=== PATIENT | male | born 1980 | race Caucasian/White ===

== ENCOUNTER 2019-07-07 15:55 | Inpatient (IN) | payer MEDICAID ==
[~2019-07-07] VITALS: Ht 182.9 cm; Wt 77.0 kg
[2019-07-07] VITALS (11 sets, daily range): BP systolic 118–152; BP diastolic 67–98
[2019-07-07] MEDS ORDERED: aspirin 300mg supp.rect RC ONE (16:00)
[2019-07-07] MEDS ORDERED: iohexol 350 MG/1 ML 200ml bottle ONE (16:01)
[2019-07-07] MEDS ORDERED: heparin 25,000 UNIT/250ml bag 250 ML IV SCH (16:01)
[2019-07-07] MEDS ORDERED: fentaNYL/PF 50MCG/1 ML 2ML syringe ONE (16:01)
[2019-07-07] MEDS ORDERED: LIDOcaine 1% (10mg/ml)w/preservative injection 20ml MDV ONE (16:01)
[2019-07-07] MEDS ORDERED: midazolam 2 mg/2 ml injection ONE ×2 (16:01→16:38)
[2019-07-07] MEDS ORDERED: heparin 1,000unit/ml 10ml vial 10 ML ONE (16:01)
[2019-07-07] MEDS ORDERED: heparin 10,000 units/1 ML INJ IV PRN (16:05)
[2019-07-07] MEDS ORDERED: heparin 10,000 units/1 ML INJ IV ONE (16:05)
[2019-07-07] MEDS ORDERED: pantoprazole 40 MG vial IV ONE ×3 (16:05→16:30)
--- NOTE | 2019-07-07 16:15 | NUR ---
ATTEMPTED TO START 2ND IV LINE WITHOUT SUCCESS. LAB DRAW PER GLASS UNLOADING EQUIPMENT TENDER. GROINS PREPPED FOR VINYL FLOORING INSTALLER. PATIENT ALERT AND COOPERATIVE.
[2019-07-07 16:30] LABS: BASOPHILS % (AUTO) 0.4 % (0-1); EOSINOPHILS # (AUTO) 0.1 X10'3 (0-0.9); EOSINOPHILS % (AUTO) 1.2 % (0-6); HEMATOCRIT 36.6 % (42.0-52.0); HEMOGLOBIN 11.6 g/dl (14.0-17.9); LYMPHOCYTES # (AUTO) 1.2 X10'3 (1.1-4.8); LYMPHOCYTES % (AUTO) 13.3 % (21-51); MEAN CORPUSCULAR HEMOGLOBIN 21.9 PG (27.0-31.0); MEAN CORPUSCULAR HGB CONC 31.6 g/dL (33.0-36.5); MEAN CORPUSCULAR VOLUME 69.3 FL (78-98); MEAN PLATELET VOLUME 8.4 FL (7.4-10.4); MONOCYTES # (AUTO) 0.8 X10'3 (0-0.9); MONOCYTES % (AUTO) 8.8 % (2-12); NEUTROPHILS # (AUTO) 6.9 X10'3 (1.8-7.7); NEUTROPHILS % (AUTO) 76.3 % (42-75); PLATELET COUNT 291 X10'3 (140-440); RED BLOOD COUNT 5.28 X10'6 (4.70-6.10); RED CELL DISTRIBUTION WIDTH 17.1 % (11.5-14.5)
--- NOTE | 2019-07-07 16:35 | NUR ---
TO BULKING MACHINE OPERATOR PER BOO WITH IV PATENT AND INFUSINIG WELL.
[2019-07-07 16:42] LABS: PARTIAL THROMBOPLASTIN TIME 27 SECONDS (22-32)
[2019-07-07] MEDS ORDERED: ticagrelor 90mg tablet ONE (16:49)
[2019-07-07 16:53] LABS: ALANINE AMINOTRANSFERASE 24 U/L (12-78); ALBUMIN/GLOBULIN RATIO 0.8 (1.1-1.5); ALKALINE PHOSPHATASE 100 IU/L (46-116); ANION GAP 6 (8-16); ASPARTATE AMINO TRANSFERASE 18 U/L (10-37); BILIRUBIN,TOTAL 0.4 MG/DL (0.1-1.0); BLOOD UREA NITROGEN 18 MG/DL (7-18); BUN/CREATININE RATIO 11.3 (5.4-32.0); CHLORIDE 97 MMOL/L (99-107); CREATININE 1.59 MG/DL (0.60-1.10); GLUCOSE 120 MG/DL (70-104); MAGNESIUM 2.1 MG/DL (1.5-2.4); SODIUM 139 MMOL/L (135-145); TOTAL CARBON DIOXIDE 36.5 MMOL/L (24-32); TOTAL PROTEIN 6.7 G/DL (6.4-8.2); eGFR 49 ML/MIN
[2019-07-07 16:58] LABS: POTASSIUM 2.6 MMOL/L (3.5-5.1)
--- NOTE | 2019-07-07 17:10 | NUR ---
Patient admitted to room 3027B. Received in concrete mixing plant laborer report that patient received loading dose of Brilinta prior to room admission. Post op vital signs initiated. Post concrete mixing plant laborer orders faxed to pharmacy. Right groin site checked, no sign of hematoma, and pulses checked as well. Will continue to monitor post op
[2019-07-07] MEDS ORDERED: proCHLORperazine 10 MG/2 ml inj IV PRN (17:35)
[2019-07-07] MEDS ORDERED: OXAZEpam 15mg capsule PO PRN (17:35)
[2019-07-07] MEDS ORDERED: HYDROcodone/acetaminophen 5mg/325mg tablet PO PRN (17:35)
[2019-07-07] MEDS ORDERED: aspirin 81mg tab.chew PO ONE (17:35)
[2019-07-07] MEDS ORDERED: potassium Cl 20 mEq SR tablet PO ONE ×5 (17:35→22:00)
[2019-07-07] MEDS ORDERED: ondansetron/PF 4mg/2ml inj IV PRN (17:35)
[2019-07-07] MEDS ORDERED: HYDROcodone/acetaminophen 10/325mg tab PO PRN (17:35)
--- NOTE | 2019-07-07 18:00 | NUR ---
Due to patient's bleeding ulcer, spoke to labor arbitrator hearing office and expressed patient's concerns regarding the 324 mg PO post op aspirin. Per labor arbitrator hearing office, patient received suppository of aspirin and we can non admin the 324 dose and continue with the 81 mg q 24 hr @ 0830 Addendum: 07/07/19 at 1804 by Bryanna Higginbotham RN NOTE PLACED BY PENNY SINHA.
--- NOTE | 2019-07-07 18:06 | NUR ---
Non-administered protonix 1630 dose as patient was not on this floor at this time and unable to know if med was given and not scanned.
[2019-07-07 18:10] LABS: PLATELET ESTIMATE NORMAL
[2019-07-07 18:11] LABS: ANISOCYTOSIS 1+; ELLIPTOCYTES FEW; HYPOCHROMASIA 1+; MICROCYTOSIS 2+
--- NOTE | 2019-07-07 18:33 | NUR ---
Problems reprioritized. Patient report given, questions answered & plan of care reviewed with Dwayne RN. At shift change, patient's right groin shows no sign of hematoma, pedal pulses present, and vss stable
[2019-07-07] MEDS: metoprolol tartrate 25mg tablet PO SCH (20:54)
[2019-07-07] MEDS: atorvastatin 20mg tablet PO SCH (20:55)
[2019-07-07] MEDS: pantoprazole 40mg Tablet.DR PO SCH (22:32)
--- NOTE | 2019-07-08 00:55 | NUR ---
Patient in room [facility] 3027. I have received report from Bryanna FRANCIS and had the opportunity to ask questions and assume patient care. Addendum: 07/08/19 at 0056 by Dwayne Denis RN Patient in room [place] [address]. I have received report from Bryanna FRANCIS and had the opportunity to ask questions and assume patient care. at 1800 07/07/2019
[2019-07-08 02:00] VITALS: BP 110/74
[2019-07-08 05:01] LABS: BASOPHILS % (AUTO) 0.4 % (0-1); EOSINOPHILS # (AUTO) 0.1 X10'3 (0-0.9); EOSINOPHILS % (AUTO) 1.3 % (0-6); HEMATOCRIT 38.8 % (42.0-52.0); HEMOGLOBIN 12.2 g/dl (14.0-17.9); LYMPHOCYTES # (AUTO) 0.9 X10'3 (1.1-4.8); LYMPHOCYTES % (AUTO) 11.4 % (21-51); MEAN CORPUSCULAR HEMOGLOBIN 22.1 PG (27.0-31.0); MEAN CORPUSCULAR HGB CONC 31.4 g/dL (33.0-36.5); MEAN CORPUSCULAR VOLUME 70.2 FL (78-98); MEAN PLATELET VOLUME 8.5 FL (7.4-10.4); MONOCYTES # (AUTO) 0.6 X10'3 (0-0.9); MONOCYTES % (AUTO) 7.6 % (2-12); NEUTROPHILS # (AUTO) 6.6 X10'3 (1.8-7.7); NEUTROPHILS % (AUTO) 79.3 % (42-75); PLATELET COUNT 269 X10'3 (140-440); RED BLOOD COUNT 5.53 X10'6 (4.70-6.10); RED CELL DISTRIBUTION WIDTH 17.4 % (11.5-14.5); WHITE BLOOD COUNT 8.3 X10'3 (4.5-11.0)
--- NOTE | 2019-07-08 05:32 | NUR ---
Spoke with Dr. Santos informed him of patients 6 beat run of Vta. Provider is aware. No orders received will continue to monitor.
[2019-07-08 05:52] LABS: ALBUMIN 3.1 G/DL (3.4-5.0); ANION GAP 8 (8-16); BLOOD UREA NITROGEN 18 MG/DL (7-18); BUN/CREATININE RATIO 12.6 (5.4-32.0); CALCIUM 9.2 MG/DL (8.5-10.1); CHLORIDE 101 MMOL/L (99-107); CREATININE 1.43 MG/DL (0.60-1.10); GLUCOSE 100 MG/DL (70-104); POTASSIUM 3.3 MMOL/L (3.5-5.1); SODIUM 142 MMOL/L (135-145); TOTAL CARBON DIOXIDE 33.4 MMOL/L (24-32); eGFR 56 ML/MIN
--- NOTE | 2019-07-08 06:14 | NUR ---
Problems reprioritized. Patient report given, questions answered & plan of care reviewed with Laya FRANCIS.
--- NOTE | 2019-07-08 06:37 | NUR ---
Patient in room PCU 3027. I have received report from Dwayne FRANCIS and had the opportunity to ask questions and assume patient care.
--- NOTE | 2019-07-08 06:38 | NUR ---
Patient in room PCU 3027. I have received report from PENNY Rice and had the opportunity to ask questions and assume patient care. Patient awake in bed and resting. Offers no complaints. No chest pain. Assessed groin site and no bruising/hematoma noted.
[2019-07-08 07:00] VITALS: BP 112/63
[2019-07-08] MEDS: metoprolol tartrate 25mg tablet PO SCH ×2 (08:04→19:38)
[2019-07-08] MEDS: pantoprazole 40mg Tablet.DR PO SCH ×2 (08:05→19:39)
[2019-07-08] MEDS: ticagrelor 90mg tablet PO SCH ×2 (08:05→19:37)
[2019-07-08] MEDS: aspirin 81mg tab.chew PO SCH (09:36)
[2019-07-08 10:11] LABS: CHOL/HDL RATIO 4.4 (0.00-4.99); CHOLESTEROL 141 MG/DL (0-200); HDL CHOLESTEROL 32 MG/DL (35-60); LDL CHOLESTEROL 87 MG/DL (50-100); TRIGLYCERIDES 114 MG/DL (20-135)
[2019-07-08] MEDS ORDERED: potassium Cl 20 mEq SR tablet PO PRN (10:35)
[2019-07-08] MEDS ORDERED: magnesium 4gm in 100ml NS 100 ML IV PRN (10:35)
[2019-07-08] MEDS ORDERED: potassium CL 10mEq/100ml bag 100 ML IV PRN (10:35)
[2019-07-08] MEDS ORDERED: magnesium Cl slow-release 64mg tablet PO PRN (10:35)
--- NOTE | 2019-07-08 10:39 | NUR ---
New order from Uzma Griffiths NP potassium replacement protocol.
[2019-07-08 11:00] VITALS: BP 89/61
[2019-07-08] MEDS: potassium Cl 20 mEq SR tablet PO PRN ×3 (11:04→21:58)
[2019-07-08 18:00] VITALS: BP 102/62
--- NOTE | 2019-07-08 18:23 | NUR ---
Patient in room PCU 3027. I have received report from PENNY Asif and had the opportunity to ask questions and assume patient care.
--- NOTE | 2019-07-08 18:25 | NUR ---
Problems reprioritized. Patient report given, questions answered & plan of care reviewed with Jesi FRANCIS Pt stable at [facility].
--- NOTE | 2019-07-08 18:25 | NUR ---
Problems reprioritized. Patient report given, questions answered & plan of care reviewed with Jesi FRANCIS. Patient stable at transfer of care.
--- NOTE | 2019-07-08 18:26 | NUR ---
[place]ee documentation: I have reviewed and agree with all interventions, assessments performed and documented by PENNY Batres. [place] Medication Administration: For this medication-pass time frame, all medication were reviewed, dispensed, administered and documented per hospital policy by PENNY Batres.
[2019-07-08] MEDS: atorvastatin 20mg tablet PO SCH (19:39)
[2019-07-08 21:59] VITALS: BP 93/69
[2019-07-08 22:07] VITALS: BP 114/67
[2019-07-09 02:48] VITALS: BP 98/59
[2019-07-09 05:29] LABS: BASOPHILS % (AUTO) 0.3 % (0-1); EOSINOPHILS # (AUTO) 0.2 X10'3 (0-0.9); EOSINOPHILS % (AUTO) 1.6 % (0-6); HEMATOCRIT 37.6 % (42.0-52.0); HEMOGLOBIN 11.8 g/dl (14.0-17.9); LYMPHOCYTES # (AUTO) 1.1 X10'3 (1.1-4.8); LYMPHOCYTES % (AUTO) 10.8 % (21-51); MEAN CORPUSCULAR HEMOGLOBIN 21.9 PG (27.0-31.0); MEAN CORPUSCULAR HGB CONC 31.4 g/dL (33.0-36.5); MEAN CORPUSCULAR VOLUME 69.9 FL (78-98); MEAN PLATELET VOLUME 8.8 FL (7.4-10.4); MONOCYTES # (AUTO) 0.9 X10'3 (0-0.9); MONOCYTES % (AUTO) 8.9 % (2-12); NEUTROPHILS # (AUTO) 7.6 X10'3 (1.8-7.7); NEUTROPHILS % (AUTO) 78.4 % (42-75); PLATELET COUNT 267 X10'3 (140-440); RED BLOOD COUNT 5.38 X10'6 (4.70-6.10); WHITE BLOOD COUNT 9.7 X10'3 (4.5-11.0)
[2019-07-09 05:37] LABS: ALBUMIN 2.9 G/DL (3.4-5.0); ANION GAP 8 (8-16); BLOOD UREA NITROGEN 17 MG/DL (7-18); BUN/CREATININE RATIO 14.4 (5.4-32.0); CALCIUM 10.4 MG/DL (8.5-10.1); CHLORIDE 99 MMOL/L (99-107); CREATININE 1.18 MG/DL (0.60-1.10); GLUCOSE 98 MG/DL (70-104); POTASSIUM 3.8 MMOL/L (3.5-5.1); SODIUM 138 MMOL/L (135-145); TOTAL CARBON DIOXIDE 31.3 MMOL/L (24-32); eGFR 69 ML/MIN
[2019-07-09 06:00] VITALS: BP 114/89
[2019-07-09] MEDS ORDERED: potassium Cl 20 mEq SR tablet PO STA (06:12)
[2019-07-09] MEDS ORDERED: ATOR20TA66 PO (06:25)
[2019-07-09] MEDS ORDERED: PANT40TA4 PO (06:25)
[2019-07-09] MEDS ORDERED: ASPI-1265 PO (06:25)
[2019-07-09] MEDS ORDERED: TICA90TA PO (06:25)
[2019-07-09] MEDS ORDERED: METO25TA6 PO (06:25)
[2019-07-09] MEDS ORDERED: NITR0.4T51 SL (06:25)
--- NOTE | 2019-07-09 06:33 | NUR ---
Problems reprioritized. Patient report given, questions answered & plan of care reviewed with PENNY Bangura.
[2019-07-09] MEDS: aspirin 81mg tab.chew PO SCH (08:33)
[2019-07-09] MEDS: pantoprazole 40mg Tablet.DR PO SCH (08:33)
[2019-07-09] MEDS: ticagrelor 90mg tablet PO SCH (08:33)
[2019-07-09 08:36] VITALS: BP_SYST 100
[2019-07-09] MEDS: metoprolol tartrate 25mg tablet PO SCH (08:36)
--- NOTE | 2019-07-09 09:44 | NUR ---
New prescriptions for discharge called into [facility] in [place]
--- NOTE | 2019-07-09 10:15 | NUR ---
reviewed all discharge instructions,confirmed prescriptions at [facility] in [place],reviewed s/p cath mobility precautions need for for f/u appt with in 2 weeks,S.L dcd' from [facility],site clear,pt dc'd via w/c with all belongings
== END 2019-07-09 10:05 | disposition home or self-care (01) | DRG 174 ==
LOC: ER 15:55 → PCU 3S 17:55
PROVIDERS: ADMIT Internal Medicine Interventional Cardiology; ATTEND Internal Medicine Interventional Cardiology
PROC: 4A023N7 Measurement of Cardiac Sampling and Pressure, Left Heart, Percutaneous Approach (ICD-10-PCS; principal; 2019-07-07)
PROC: 02703DZ Dilation of Coronary Artery, One Artery with Intraluminal Device, Percutaneous Approach (ICD-10-PCS; 2019-07-07)
PROC: B2111ZZ Fluoroscopy of Multiple Coronary Arteries using Low Osmolar Contrast (ICD-10-PCS; 2019-07-07)
PROC: B2151ZZ Fluoroscopy of Left Heart using Low Osmolar Contrast (ICD-10-PCS; 2019-07-07)
DX: I21.3 ST elevation (STEMI) myocardial infarction of unspecified site (principal); F12.90 Cannabis use, unspecified, uncomplicated; F17.210 Nicotine dependence, cigarettes, uncomplicated; Z79.899 Other long term (current) drug therapy; Z82.49 Family history of ischemic heart disease and other diseases of the circulatory system; Z87.11 Personal history of peptic ulcer disease
CPT/HCPCS: 36415; 71045; 80048; 80053; 80061; 83735; 83880; 84484; 85025; 85610; 85730; 93005; 93306; 93458; 96374; 96375; 99152; 99153; 99291; A6258; C1725; C1751; C1760; C1769; C1876; C1894; C9113; C9606; G0378; J1644; J2001; J2250; J2405; J3010; Q9967

== ENCOUNTER 2019-07-29 09:16 | Inpatient (IN) | payer MEDICAID ==
[~2019-07-29] VITALS: Ht 182.9 cm; Wt 66.9 kg
[~2019-07-29 09:16] MED LIST: ASPI-1265 PO; ATOR20TA66 PO; METO25TA6 PO; NITR0.4T51 SL; PANT40TA4 PO; TICA90TA PO
[2019-07-29] MEDS ORDERED: normal saline 1000ML IV soln IV ONE (09:45)
[2019-07-29 09:58] LABS: BASOPHILS % (AUTO) 0.3 % (0-1); EOSINOPHILS # (AUTO) 0.1 X10'3 (0-0.9); EOSINOPHILS % (AUTO) 0.3 % (0-6); HEMATOCRIT 33.7 % (42.0-52.0); HEMOGLOBIN 10.7 g/dl (14.0-17.9); LYMPHOCYTES # (AUTO) 0.8 X10'3 (1.1-4.8); LYMPHOCYTES % (AUTO) 4.2 % (21-51); MEAN CORPUSCULAR HEMOGLOBIN 22.3 PG (27.0-31.0); MEAN CORPUSCULAR HGB CONC 31.9 g/dL (33.0-36.5); MEAN CORPUSCULAR VOLUME 69.8 FL (78-98); MEAN PLATELET VOLUME 8.8 FL (7.4-10.4); MONOCYTES # (AUTO) 0.9 X10'3 (0-0.9); MONOCYTES % (AUTO) 4.8 % (2-12); NEUTROPHILS # (AUTO) 17.2 X10'3 (1.8-7.7); NEUTROPHILS % (AUTO) 90.4 % (42-75); PLATELET COUNT 276 X10'3 (140-440); RED BLOOD COUNT 4.82 X10'6 (4.70-6.10); RED CELL DISTRIBUTION WIDTH 17.9 % (11.5-14.5)
[2019-07-29 10:11] LABS: ALANINE AMINOTRANSFERASE 34 U/L (12-78); ALBUMIN 3.3 G/DL (3.4-5.0); ALBUMIN/GLOBULIN RATIO 0.7 (1.1-1.5); ALKALINE PHOSPHATASE 132 IU/L (46-116); ASPARTATE AMINO TRANSFERASE 60 U/L (10-37); BILIRUBIN,TOTAL 1.6 MG/DL (0.1-1.0); BLOOD UREA NITROGEN 47 MG/DL (7-18); BUN/CREATININE RATIO 14.4 (5.4-32.0); CALCIUM 9.4 MG/DL (8.5-10.1); CHLORIDE 79 MMOL/L (99-107); CREATININE 3.26 MG/DL (0.60-1.10); GLUCOSE 114 MG/DL (70-104); SODIUM 131 MMOL/L (135-145); TOTAL PROTEIN 7.9 G/DL (6.4-8.2); eGFR 22 ML/MIN
[2019-07-29 10:14] LABS: POTASSIUM 2.3 MMOL/L (3.5-5.1)
[2019-07-29 10:26] LABS: ANISOCYTOSIS 1+; MICROCYTOSIS 2+; PLATELET ESTIMATE NORMAL; POLYCHROMASIA 1+; TOTAL CELLS COUNTED 100
[2019-07-29 10:29] LABS: ANION GAP 4 (8-16)
[2019-07-29 10:31] LABS: TOTAL CARBON DIOXIDE 47.7 MMOL/L (24-32)
[2019-07-29] MEDS ORDERED: potassium Cl 10 mEq/100mL bag IV ONE (10:35)
[2019-07-29] MEDS ORDERED: potassium Cl 20 mEq SR tablet PO PRN (12:05)
[2019-07-29] MEDS ORDERED: magnesium Cl slow-release 64mg tablet PO PRN (12:05)
[2019-07-29] MEDS ORDERED: magnesium 4gm in 100ml NS 100 ML IV PRN (12:05)
[2019-07-29] MEDS ORDERED: potassium CL 10mEq/100ml bag 100 ML IV PRN ×2 (12:05)
[2019-07-29] MEDS ORDERED: magnesium 2GM in 50ml NS 50 ML IV PRN (12:05)
[2019-07-29] MEDS ORDERED: ondansetron/PF 4mg/2ml inj IV PRN (12:05)
[2019-07-29] MEDS ORDERED: TICA90TA PO (12:51)
[2019-07-29] MEDS ORDERED: ATOR80TA PO (12:51)
[2019-07-29] MEDS ORDERED: ONDA4TAB6 PO (12:51)
[2019-07-29] MEDS ORDERED: FERR-39 PO (12:51)
[2019-07-29] MEDS ORDERED: PANT40TA4 PO (12:51)
[2019-07-29] MEDS ORDERED: ASPI-1265 PO (12:51)
[2019-07-29] MEDS ORDERED: METO25TA6 PO (12:51)
[2019-07-29] MEDS ORDERED: NITR0.4T48 SL (12:51)
[2019-07-29] MEDS ORDERED: ALLO100T25 PO (12:51)
[2019-07-29] MEDS ORDERED: SUCR1TAB PO (12:51)
--- NOTE | 2019-07-29 12:59 | NUR ---
Patient in room ED 2. I have received report from Caitlyn RN and had the opportunity to ask questions and assume patient care.
[2019-07-29 13:14] LABS: OCCULT BLOOD STOOL POSITIVE (Neg)
--- NOTE | 2019-07-29 14:00 | NUR ---
Potassium 2.3, began replacement protocol
[2019-07-29 14:17] VITALS: BP 115/73
[2019-07-29] MEDS: normal saline 1000ml 1,000 ML IV SCH ×2 (14:19→22:37)
[2019-07-29] MEDS: pantoprazole 40MG/NS 100ML BAG 100 ML IV SCH ×3 (15:58→20:43)
[2019-07-29] MEDS ORDERED: nitroGLYCERIN 0.4mg SUBLingual tab SL PRN (16:40)
--- NOTE | 2019-07-29 16:53 | NUR ---
Page to Jaya PAGER ID: [phone] MESSAGE: Fannie GINI [phone]. Patient Bryanna [id number]. Can I get a Nicotine patch for him? He recently quit but struggling
[2019-07-29 17:00] VITALS: BP 96/62
[2019-07-29 18:00] VITALS: BP 99/59
--- NOTE | 2019-07-29 18:00 | NUR ---
Patient in room PCU 3023. I have received report from Fannie FRANCIS and had the opportunity to ask questions and assume patient care.
[2019-07-29 18:36] LABS: MEAN CORPUSCULAR HEMOGLOBIN 22.9 PG (27.0-31.0); MEAN CORPUSCULAR HGB CONC 31.9 g/dL (33.0-36.5); MEAN CORPUSCULAR VOLUME 71.6 FL (78-98); MEAN PLATELET VOLUME 8.7 FL (7.4-10.4); PLATELET COUNT 176 X10'3 (140-440); RED BLOOD COUNT 3.92 X10'6 (4.70-6.10); RED CELL DISTRIBUTION WIDTH 18.8 % (11.5-14.5); WHITE BLOOD COUNT 14.8 X10'3 (4.5-11.0)
--- NOTE | 2019-07-29 18:38 | NUR ---
Problems reprioritized. Patient report given, questions answered & plan of care reviewed with Guillermina FRANCIS. Patient stable at transfer of care.
[2019-07-29] MEDS: sucralfate 1 gm tablet PO SCH (19:20)
[2019-07-29] MEDS: ticagrelor 90mg tablet PO SCH (19:20)
[2019-07-29] MEDS: potassium Cl 20 mEq SR tablet PO PRN (19:21)
[2019-07-29] MEDS: K and/or MAG REPLACEMENT MC SCH (19:23)
[2019-07-29] MEDS: ferrous sulfate 325mg tablet PO SCH (20:26)
[2019-07-29 20:46] LABS: CLARITY,URINE CLEAR (Clear); COLOR,URINE YELLOW (Yellow); GLUCOSE, URINE NEGATIVE (Neg); KETONES,URINE NEGATIVE (Neg); LEUKOCYTE ESTERASE ,URINE NEGATIVE (Neg); NITRITES, URINE NEGATIVE (Neg); OCCULT BLOOD,URINE NEGATIVE (Neg); PH,URINE 7.5 (4.8-8.0); PROTEIN,URINE TRACE mg/dl (Neg)
[2019-07-29 20:57] LABS: UA COLLECTION TYPE CLN CATCH MIDSTREAM
[2019-07-29 21:00] LABS: BACTERIA,URINE NONE SEEN /HPF (Neg); RBC,URINE NONE SEEN /HPF (0-2); SQUAMOUS EPITHELIAL CELL,UR FEW /LPF (FEW); WBC,URINE 0-4 /HPF (0-4)
[2019-07-29 21:01] LABS: URINE AMPHETAMINE SCREEN NEGATIVE (Neg); URINE BARBITUATE SCREEN NEGATIVE (Neg); URINE BENZODIAZEPINES SCREEN NEGATIVE (Neg); URINE CANNABINOID SCREEN POSITIVE (Neg); URINE COCAINE SCREEN NEGATIVE (Neg); URINE METHADONE SCREEN NEGATIVE (Neg); URINE OPIATE SCREEN NEGATIVE (Neg); URINE PHENCYCLIDINE SCREEN NEGATIVE (Neg)
[2019-07-29 21:16] LABS: UA EOSINOPHILS NO EOS /HPF
[2019-07-29 22:00] VITALS: BP 102/60
[2019-07-29] MEDS ORDERED: Melatonin 3mg tablet PO SCH (22:40)
[2019-07-30] MEDS: pantoprazole 40MG/NS 100ML BAG 100 ML IV SCH ×2 (00:25→06:26)
[2019-07-30 02:00] VITALS: BP 97/56
[2019-07-30] MEDS: potassium Cl 20 mEq SR tablet PO PRN (02:52)
--- NOTE | 2019-07-30 05:00 | NUR ---
CRITICAL K 2.4 MD HERNANDEZ NOTIFIED, NO NEW ORDERS.
[2019-07-30 05:24] LABS: BASOPHILS % (AUTO) 0.2 % (0-1); EOSINOPHILS # (AUTO) 0.1 X10'3 (0-0.9); EOSINOPHILS % (AUTO) 1.2 % (0-6); HEMOGLOBIN 8.9 g/dl (14.0-17.9); LYMPHOCYTES # (AUTO) 0.5 X10'3 (1.1-4.8); LYMPHOCYTES % (AUTO) 4.6 % (21-51); MEAN CORPUSCULAR HEMOGLOBIN 22.6 PG (27.0-31.0); MEAN CORPUSCULAR HGB CONC 31.7 g/dL (33.0-36.5); MEAN CORPUSCULAR VOLUME 71.3 FL (78-98); MEAN PLATELET VOLUME 8.5 FL (7.4-10.4); MONOCYTES # (AUTO) 0.6 X10'3 (0-0.9); MONOCYTES % (AUTO) 5.2 % (2-12); NEUTROPHILS # (AUTO) 10.6 X10'3 (1.8-7.7); NEUTROPHILS % (AUTO) 88.8 % (42-75); PLATELET COUNT 175 X10'3 (140-440); RED BLOOD COUNT 3.93 X10'6 (4.70-6.10); RED CELL DISTRIBUTION WIDTH 18.5 % (11.5-14.5); WHITE BLOOD COUNT 11.9 X10'3 (4.5-11.0)
[2019-07-30 05:40] LABS: ALBUMIN 2.4 G/DL (3.4-5.0); ANION GAP 4 (8-16); BLOOD UREA NITROGEN 37 MG/DL (7-18); BUN/CREATININE RATIO 18.3 (5.4-32.0); CALCIUM 8.2 MG/DL (8.5-10.1); CHLORIDE 91 MMOL/L (99-107); CREATININE 2.02 MG/DL (0.60-1.10); GLUCOSE 73 MG/DL (70-104); MAGNESIUM 2.5 MG/DL (1.5-2.4); SODIUM 134 MMOL/L (135-145); TOTAL CARBON DIOXIDE 39.3 MMOL/L (24-32); eGFR 37 ML/MIN
[2019-07-30 05:44] LABS: POTASSIUM 2.4 MMOL/L (3.5-5.1)
[2019-07-30 06:00] VITALS: BP 104/62
--- NOTE | 2019-07-30 06:34 | NUR ---
Problems reprioritized. Patient report given, questions answered & plan of care reviewed with Fannie FRANCIS.
--- NOTE | 2019-07-30 06:50 | NUR ---
Patient in room PCU 3023. I have received report from Guillermina FRANCIS and had the opportunity to ask questions and assume patient care.
[2019-07-30] MEDS: K and/or MAG REPLACEMENT MC SCH (07:54)
[2019-07-30] MEDS: sucralfate 1 gm tablet PO SCH (07:57)
[2019-07-30] MEDS: ferrous sulfate 325mg tablet PO SCH (07:58)
[2019-07-30] MEDS: ticagrelor 90mg tablet PO SCH (07:59)
[2019-07-30] MEDS ORDERED: atorvastatin 20mg tablet PO SCH (08:00)
[2019-07-30] MEDS ORDERED: allopurinol 100mg tablet PO SCH (08:00)
--- NOTE | 2019-07-30 09:48 | NUR ---
Page to Jaya PAGER ID: [phone] MESSAGE: Fannie RUBALCAVA. Patient Bryanna [id number]. Patient is leaving AMA. Very agitated.
--- NOTE | 2019-07-30 09:54 | NUR ---
Patient left AMA, signed paper in chart. Walked out with shorts on no shirt, with girlfriend.
== END 2019-07-30 10:00 | disposition left against medical advice (07) | DRG 253 ==
LOC: ER 09:16 → ED HOLD 12:05 → PCU 3S 13:16
PROVIDERS: ADMIT Internal Medicine; ATTEND Internal Medicine
DX: K92.2 Gastrointestinal hemorrhage, unspecified (principal); I21.A1 Myocardial infarction type 2; N17.9 Acute kidney failure, unspecified; D62 Acute posthemorrhagic anemia; E87.1 Hypo-osmolality and hyponatremia; E78.5 Hyperlipidemia, unspecified; R55 Syncope and collapse; Z53.29 Procedure and treatment not carried out because of patient's decision for other reasons; W18.39XA Other fall on same level, initial encounter; E86.1 Hypovolemia; F17.200 Nicotine dependence, unspecified, uncomplicated; E87.6 Hypokalemia; I25.10 Atherosclerotic heart disease of native coronary artery without angina pectoris; I25.2 Old myocardial infarction; Z87.11 Personal history of peptic ulcer disease; Z95.5 Presence of coronary angioplasty implant and graft; Y93.89 Activity, other specified; Y92.89 Other specified places as the place of occurrence of the external cause; Y99.8 Other external cause status; Z79.899 Other long term (current) drug therapy
CPT/HCPCS: 36415; 70450; 71045; 76700; 80048; 80053; 80305; 81001; 82272; 82570; 83735; 83935; 84300; 84484; 85025; 85027; 85610; 86885; 86900; 86901; 87207; 93005; 99291; C9113; G0378; J2405; J3480; J7030

== ENCOUNTER 2019-08-05 08:38 | Inpatient (IN) | payer MEDICAID ==
[~2019-08-05] VITALS: Ht 182.9 cm; Wt 65.5 kg
[2019-08-05] VITALS (10 sets, daily range): BP systolic 91–124; BP diastolic 42–83
[~2019-08-05 08:38] MED LIST changes: +ALLO100T25 PO; -ATOR20TA66 PO; +ATOR80TA PO; +FERR-39 PO; +NITR0.4T48 SL; -NITR0.4T51 SL; +ONDA4TAB6 PO; +SUCR1TAB PO
[2019-08-05 09:16] LABS: EOSINOPHILS # (AUTO) 0.1 X10'3 (0-0.9); HEMATOCRIT 26.7 % (42.0-52.0); HEMOGLOBIN 8.4 g/dl (14.0-17.9); MEAN CORPUSCULAR VOLUME 73.2 FL (78-98); MONOCYTES # (AUTO) 0.7 X10'3 (0-0.9); NEUTROPHILS % (AUTO) 84.8 % (42-75)
[2019-08-05 09:17] LABS: BASOPHILS # (AUTO) 0.1 X10'3 (0-0.2); BASOPHILS % (AUTO) 0.5 % (0-1); LYMPHOCYTES % (AUTO) 7.9 % (21-51); MEAN CORPUSCULAR HGB CONC 31.4 g/dL (33.0-36.5); MEAN PLATELET VOLUME 8.8 FL (7.4-10.4); MONOCYTES % (AUTO) 5.8 % (2-12); NEUTROPHILS # (AUTO) 10.7 X10'3 (1.8-7.7); PLATELET COUNT 53 X10'3 (140-440); RED BLOOD COUNT 3.66 X10'6 (4.70-6.10); WHITE BLOOD COUNT 12.6 X10'3 (4.5-11.0)
[2019-08-05 09:30] LABS: ALANINE AMINOTRANSFERASE 37 U/L (12-78); ALBUMIN 2.6 G/DL (3.4-5.0); ALBUMIN/GLOBULIN RATIO 0.7 (1.1-1.5); ALKALINE PHOSPHATASE 339 IU/L (46-116); ANION GAP 10 (8-16); ASPARTATE AMINO TRANSFERASE 146 U/L (10-37); BILIRUBIN,TOTAL 2.1 MG/DL (0.1-1.0); BLOOD UREA NITROGEN 48 MG/DL (7-18); BUN/CREATININE RATIO 19.9 (5.4-32.0); CALCIUM 8.7 MG/DL (8.5-10.1); CHLORIDE 91 MMOL/L (99-107); CREATININE 2.41 MG/DL (0.60-1.10); GLUCOSE 109 MG/DL (70-104); LIPASE 273 U/L (73-393); SODIUM 137 MMOL/L (135-145); TOTAL CARBON DIOXIDE 35.9 MMOL/L (24-32); TOTAL PROTEIN 6.1 G/DL (6.4-8.2); eGFR 30 ML/MIN
[2019-08-05 09:32] LABS: POTASSIUM 2.5 MMOL/L (3.5-5.1)
[2019-08-05] MEDS ORDERED: potassium Cl 20 mEq SR tablet PO ONE (09:35)
[2019-08-05] MEDS ORDERED: potassium Cl 10 mEq/100mL bag IV ONE (09:35)
[2019-08-05 09:38] LABS: CLARITY,URINE SLIGHTLY CLOUDY (Clear); COLOR,URINE YELLOW (Yellow); GLUCOSE, URINE NEGATIVE (Neg); KETONES,URINE NEGATIVE (Neg); LEUKOCYTE ESTERASE ,URINE NEGATIVE (Neg); NITRITES, URINE NEGATIVE (Neg); OCCULT BLOOD,URINE NEGATIVE (Neg); PH,URINE 5.5 (4.8-8.0); PROTEIN,URINE TRACE mg/dl (Neg)
[2019-08-05 09:40] LABS: UA COLLECTION TYPE VOIDED
[2019-08-05 09:47] LABS: SQUAMOUS EPITHELIAL CELL,UR FEW /LPF (FEW)
[2019-08-05 09:48] LABS: BACTERIA,URINE 1+ /HPF (Neg); COARSE GRANULAR CAST 0-3 /LPF (NEGATIVE); RBC,URINE 0-2 /HPF (0-2); SPERM FEW /HPF (NEGATIVE); WBC,URINE 0-4 /HPF (0-4)
[2019-08-05 09:49] LABS: MUCUS STRANDS FEW /LPF (Neg)
[2019-08-05] MEDS ORDERED: ondansetron/PF 4mg/2ml inj IV ONE (09:55)
[2019-08-05 10:26] LABS: NUCLEATED RED BLOOD CELLS 3 /100WBC (0-0); TOTAL CELLS COUNTED 100
[2019-08-05 10:27] LABS: ANISOCYTOSIS 3+; MICROCYTOSIS 1+; PLATELET ESTIMATE DECREASED
[2019-08-05 10:28] LABS: LARGE PLATELETS MODERATE; POLYCHROMASIA FEW; SCHISTOCYTES FEW
[2019-08-05 10:29] LABS: GIANT PLATELET FEW; HYPOCHROMASIA 1+
[2019-08-05 10:32] LABS: TOXIC GRANULATION 1+
[2019-08-05] MEDS ORDERED: pantoprazole IV 80 MG in normal saline 100ml IV soln 100 ML IV ONE ×4 (11:15)
[2019-08-05] MEDS ORDERED: normal saline 1000ML IV soln IV ONE (11:15)
[2019-08-05] MEDS ORDERED: pantoprazole 40 MG vial IV ONE (11:35)
[2019-08-05] MEDS ORDERED: BUPR-74 PO (11:51)
[2019-08-05] MEDS ORDERED: ondansetron 4mg rapidly disintigrating tab PO PRN (12:00)
[2019-08-05] MEDS: pantoprazole 40MG/NS 100ML BAG 100 ML IV SCH ×3 (12:03→22:55)
[2019-08-05] MEDS ORDERED: magnesium Cl slow-release 64mg tablet PO PRN (12:05)
[2019-08-05] MEDS ORDERED: diphenhydrAMINE 50 mg/ml inj IV PRN (12:05)
[2019-08-05] MEDS ORDERED: bisacodyl 10mg suppository rectal RC PRN (12:05)
[2019-08-05] MEDS ORDERED: magnesium 4gm in 100ml NS 100 ML IV PRN (12:05)
[2019-08-05] MEDS ORDERED: HYDROcodone/acetaminophen 10/325mg tab PO PRN (12:05)
[2019-08-05] MEDS ORDERED: mag hydrox/Alum hydrox/simeth 30ml oral suspension PO PRN (12:05)
[2019-08-05] MEDS ORDERED: HYDROcodone/acetaminophen 5mg/325mg tablet PO PRN (12:05)
[2019-08-05] MEDS ORDERED: diphenhydrAMINE 25mg capsule PO PRN (12:05)
[2019-08-05] MEDS ORDERED: potassium Cl 20 mEq SR tablet PO PRN (12:05)
[2019-08-05] MEDS ORDERED: metoclopramide 5 mg/ml inj IV PRN (12:05)
[2019-08-05] MEDS ORDERED: magnesium 2GM in 50ml NS 50 ML IV PRN (12:05)
[2019-08-05] MEDS ORDERED: potassium CL 10mEq/100ml bag 100 ML IV PRN ×2 (12:05)
[2019-08-05] MEDS ORDERED: acetaminophen 650mg rectal suppository RC PRN (12:05)
[2019-08-05] MEDS ORDERED: acetaminophen 325mg tablet PO PRN ×2 (12:05)
[2019-08-05] MEDS ORDERED: morphine 2 MG/ML inj. syringe IV PRN ×2 (12:05)
[2019-08-05] MEDS ORDERED: ondansetron/PF 4mg/2ml inj IV PRN (12:05)
[2019-08-05] MEDS ORDERED: magnesium hydroxide 30ml (MOM) UD suspension PO PRN (12:05)
[2019-08-05] MEDS ORDERED: octreotide inj. 1,250 MCG in normal saline 250ml IV soln 250 ML IV SCH (12:15)
[2019-08-05] MEDS: buPROPion SR 150mg tablet PO SCH (12:42)
[2019-08-05] MEDS: ferrous sulfate 325mg tablet PO SCH ×2 (13:00→20:45)
[2019-08-05 13:51] LABS: URINE AMPHETAMINE SCREEN POSITIVE (Neg); URINE BARBITUATE SCREEN NEGATIVE (Neg); URINE BENZODIAZEPINES SCREEN NEGATIVE (Neg); URINE CANNABINOID SCREEN POSITIVE (Neg); URINE COCAINE SCREEN NEGATIVE (Neg); URINE METHADONE SCREEN NEGATIVE (Neg); URINE OPIATE SCREEN NEGATIVE (Neg); URINE PHENCYCLIDINE SCREEN NEGATIVE (Neg)
--- NOTE | 2019-08-05 13:56 | NUR ---
RECEIVED TELEPHONE REPORT FROM PENNY CARIAS
[2019-08-05] MEDS: normal saline 1000ml 1,000 ML IV SCH ×2 (14:35→22:02)
[2019-08-05 17:07] LABS: BASOPHILS # (AUTO) 0.1 X10'3 (0-0.2); EOSINOPHILS # (AUTO) 0.1 X10'3 (0-0.9); MEAN PLATELET VOLUME 8.3 FL (7.4-10.4)
[2019-08-05 17:08] LABS: BASOPHILS % (AUTO) 0.8 % (0-1); HEMOGLOBIN 7.3 g/dl (14.0-17.9); LYMPHOCYTES # (AUTO) 1.1 X10'3 (1.1-4.8); LYMPHOCYTES % (AUTO) 9.2 % (21-51); MEAN CORPUSCULAR HEMOGLOBIN 23.1 PG (27.0-31.0); MEAN CORPUSCULAR HGB CONC 31.6 g/dL (33.0-36.5); MEAN CORPUSCULAR VOLUME 73.3 FL (78-98); MONOCYTES # (AUTO) 0.8 X10'3 (0-0.9); MONOCYTES % (AUTO) 6.8 % (2-12); NEUTROPHILS # (AUTO) 9.6 X10'3 (1.8-7.7); NEUTROPHILS % (AUTO) 82.2 % (42-75); RED BLOOD COUNT 3.14 X10'6 (4.70-6.10); RED CELL DISTRIBUTION WIDTH 20.7 % (11.5-14.5); WHITE BLOOD COUNT 11.6 X10'3 (4.5-11.0)
[2019-08-05 17:28] LABS: PLATELET COUNT 37 X10'3 (140-440)
--- NOTE | 2019-08-05 17:32 | NUR ---
PAGER ID: [phone] MESSAGE: DR. SZMYANSKI, [id number]/ERNESTINE, CRITICAL PLT 37, H+H 7.3/23.0, 1655 DRAW. DORETHA [phone]. TY.
[2019-08-05] MEDS ORDERED: diphenhydrAMINE 25mg capsule PO ONE (18:00)
[2019-08-05] MEDS ORDERED: acetaminophen 325mg tablet PO ONE (18:00)
--- NOTE | 2019-08-05 18:35 | NUR ---
Problems reprioritized. Patient report given, questions answered & plan of care reviewed with robbie kearns.
--- NOTE | 2019-08-05 19:07 | NUR ---
Patient in room U 3012. I have received report from PENNY Howard and had the opportunity to ask questions and assume patient care. Addendum: 08/05/19 at 1907 by Yandy Hercules RN Amended: Links added.
[2019-08-05] MEDS: metoprolol tartrate 25mg tablet PO SCH (20:00)
[2019-08-05] MEDS ORDERED: furosemide 20 MG/2 ML vial IV ONE (20:00)
[2019-08-05] MEDS: K and/or MAG REPLACEMENT MC SCH (20:00)
[2019-08-05] MEDS: sucralfate 1 gm tablet PO SCH (20:45)
[2019-08-05] MEDS: potassium Cl 20 mEq SR tablet PO PRN (22:55)
[2019-08-06] VITALS (16 sets, daily range): BP systolic 85–95; BP diastolic 47–68
--- NOTE | 2019-08-06 02:40 | NUR ---
patient had given 2 units of PRBC and 2 units of platelets, no noted reaction and no changes in condition noted.
[2019-08-06] MEDS: potassium Cl 20 mEq SR tablet PO PRN (03:09)
--- NOTE | 2019-08-06 03:22 | NUR ---
paged Dr. Evans PAGER ID: [phone] MESSAGE: [phone] - B; admitted for ARF, GI bleed, just had 2 units of blood and 2 platelets, SBP were on high 80's and low 90's, had to increase his o2 from 3l to 4l, was sating 88-96 off and on. pt in no distress at the moment and no complained.
[2019-08-06] MEDS: pantoprazole 40MG/NS 100ML BAG 100 ML IV SCH ×3 (03:49→11:15)
[2019-08-06 06:08] LABS: BASOPHILS # (AUTO) 0.1 X10'3 (0-0.2); BASOPHILS % (AUTO) 0.6 % (0-1); EOSINOPHILS # (AUTO) 0.1 X10'3 (0-0.9); HEMOGLOBIN 9.5 g/dl (14.0-17.9); PLATELET COUNT 61 X10'3 (140-440); RED CELL DISTRIBUTION WIDTH 21.9 % (11.5-14.5); WHITE BLOOD COUNT 12.4 X10'3 (4.5-11.0)
[2019-08-06 06:10] LABS: EOSINOPHILS % (AUTO) 0.8 % (0-6); HEMATOCRIT 29.4 % (42.0-52.0); LYMPHOCYTES # (AUTO) 1.3 X10'3 (1.1-4.8); LYMPHOCYTES % (AUTO) 10.3 % (21-51); MEAN CORPUSCULAR HEMOGLOBIN 24.9 PG (27.0-31.0); MEAN CORPUSCULAR HGB CONC 32.4 g/dL (33.0-36.5); MEAN CORPUSCULAR VOLUME 76.7 FL (78-98); MEAN PLATELET VOLUME 8.3 FL (7.4-10.4); MONOCYTES # (AUTO) 0.7 X10'3 (0-0.9); MONOCYTES % (AUTO) 5.9 % (2-12); NEUTROPHILS # (AUTO) 10.2 X10'3 (1.8-7.7); NEUTROPHILS % (AUTO) 82.4 % (42-75); RED BLOOD COUNT 3.83 X10'6 (4.70-6.10)
[2019-08-06 06:36] LABS: ALANINE AMINOTRANSFERASE 28 U/L (12-78); ALBUMIN 2.2 G/DL (3.4-5.0); ALBUMIN/GLOBULIN RATIO 0.7 (1.1-1.5); ALKALINE PHOSPHATASE 387 IU/L (46-116); ANION GAP 13 (8-16); ASPARTATE AMINO TRANSFERASE 156 U/L (10-37); BILIRUBIN,TOTAL 3.2 MG/DL (0.1-1.0); BLOOD UREA NITROGEN 45 MG/DL (7-18); BUN/CREATININE RATIO 22.6 (5.4-32.0); CALCIUM 7.9 MG/DL (8.5-10.1); CHLORIDE 98 MMOL/L (99-107); CREATININE 1.99 MG/DL (0.60-1.10); ETHANOL < 0.010 GM/DL (0.0-0.010); GLUCOSE 98 MG/DL (70-104); MAGNESIUM 2.1 MG/DL (1.5-2.4); PHOSPHORUS 4.3 MG/DL (2.3-4.5); POTASSIUM 3.2 MMOL/L (3.5-5.1); SODIUM 138 MMOL/L (135-145); TOTAL CARBON DIOXIDE 27.2 MMOL/L (24-32); TOTAL PROTEIN 5.3 G/DL (6.4-8.2); eGFR 38 ML/MIN
[2019-08-06 06:37] LABS: HIV ANTIBODY 1&2 RAPID NON-REACTIVE (Neg)
--- NOTE | 2019-08-06 06:50 | NUR ---
Patient in room PCU 3012. I have received report from Keily Chen and had the opportunity to ask questions and assume patient care.
--- NOTE | 2019-08-06 06:56 | NUR ---
Problems reprioritized. Patient report given, questions answered & plan of care reviewed with PENNY Dhillon.
[2019-08-06 07:01] LABS: NUCLEATED RED BLOOD CELLS 7 /100WBC (0-0); PLATELET ESTIMATE DECREASED; TOTAL CELLS COUNTED 100
[2019-08-06 07:02] LABS: ANISOCYTOSIS 3+; LARGE PLATELETS FEW; MICROCYTOSIS 1+; POLYCHROMASIA 2+; TOXIC GRANULATION 2+
[2019-08-06 07:03] LABS: SCHISTOCYTES FEW
[2019-08-06] MEDS: K and/or MAG REPLACEMENT MC SCH (07:24)
[2019-08-06] MEDS: metoprolol tartrate 25mg tablet PO SCH (07:24)
[2019-08-06] MEDS: atorvastatin 20mg tablet PO SCH ×2 (07:24→07:46)
[2019-08-06] MEDS: sucralfate 1 gm tablet PO SCH (07:38)
[2019-08-06] MEDS: ferrous sulfate 325mg tablet PO SCH (07:39)
[2019-08-06] MEDS: buPROPion SR 150mg tablet PO SCH (07:46)
[2019-08-06] MEDS: normal saline 1000ml 1,000 ML IV SCH (07:53)
[2019-08-06] MEDS ORDERED: fentaNYL/PF 50MCG/1 ML 2ML syringe ONE (08:38)
[2019-08-06] MEDS ORDERED: LIDOcaine Viscous 15ml cup ONE (08:39)
[2019-08-06] MEDS ORDERED: MIDAZolam 5mg/5ml vial ONE (08:39)
[2019-08-06 11:01] LABS: RED BLOOD COUNT 3.91 X10'6 (4.70-6.10)
[2019-08-06 11:03] LABS: HEMATOCRIT 30.4 % (42.0-52.0); HEMOGLOBIN 9.9 g/dl (14.0-17.9); MEAN CORPUSCULAR HEMOGLOBIN 25.3 PG (27.0-31.0); MEAN CORPUSCULAR HGB CONC 32.5 g/dL (33.0-36.5); MEAN CORPUSCULAR VOLUME 77.8 FL (78-98); MEAN PLATELET VOLUME 8.4 FL (7.4-10.4); RED CELL DISTRIBUTION WIDTH 22.2 % (11.5-14.5); WHITE BLOOD COUNT 14.1 X10'3 (4.5-11.0)
[2019-08-06 11:28] LABS: PLATELET COUNT 41 X10'3 (140-440)
--- NOTE | 2019-08-06 12:42 | NUR ---
Patient complaining of wanting to eat and of wanting to be "out of this place". Patient educated about the severe risks if he decides to leave AMA. Patient is in very poor condition however, he stated "I would rather on the streets than in here". He signed an AMA form, PIVs were removed and was paged.
--- NOTE | 2019-08-06 12:45 | NUR ---
Home medications were retrieved from the pharmacy and given back to the patient to take home.
[2019-08-07 11:38] LABS: GAMMA GLUTAMLY TRANSPEPTIDASE 15 IU/L (0-65); HBSAG SCREEN Negative (Negative); HEP A AB, IGM Negative (Negative); HEPATITIS C ANTIBODY <0.1 s/co ratio (0.0-0.9)
== END 2019-08-06 12:49 | disposition left against medical advice (07) | DRG 241 ==
LOC: ER 08:39 → ED HOLD 12:02 → PCU 3S 14:12
PROVIDERS: ADMIT Family Medicine; ATTEND Family Medicine
PROC: 30233R1 Transfusion of Nonautologous Platelets into Peripheral Vein, Percutaneous Approach (ICD-10-PCS; 2019-08-05)
PROC: 30233N1 Transfusion of Nonautologous Red Blood Cells into Peripheral Vein, Percutaneous Approach (ICD-10-PCS; 2019-08-05)
PROC: 0DJ08ZZ Inspection of Upper Intestinal Tract, Via Natural or Artificial Opening Endoscopic (ICD-10-PCS; principal; 2019-08-06)
DX: K25.4 Chronic or unspecified gastric ulcer with hemorrhage (principal); K22.11 Ulcer of esophagus with bleeding; E44.0 Moderate protein-calorie malnutrition; K31.1 Adult hypertrophic pyloric stenosis; D69.6 Thrombocytopenia, unspecified; D64.9 Anemia, unspecified; D72.829 Elevated white blood cell count, unspecified; E78.5 Hyperlipidemia, unspecified; F10.20 Alcohol dependence, uncomplicated; F15.10 Other stimulant abuse, uncomplicated; F17.210 Nicotine dependence, cigarettes, uncomplicated; I12.9 Hypertensive chronic kidney disease with stage 1 through stage 4 chronic kidney disease, or unspecified chronic kidney disease; K21.9 Gastro-esophageal reflux disease without esophagitis; M41.9 Scoliosis, unspecified; I25.10 Atherosclerotic heart disease of native coronary artery without angina pectoris; N18.9 Chronic kidney disease, unspecified; I25.2 Old myocardial infarction; Z79.82 Long term (current) use of aspirin; Z79.899 Other long term (current) drug therapy; Z87.11 Personal history of peptic ulcer disease; Z91.19 Patient's noncompliance with other medical treatment and regimen; Z95.5 Presence of coronary angioplasty implant and graft; Z68.1 Body mass index [BMI] 19.9 or less, adult
CPT/HCPCS: 36415; 36430; 43239; 71045; 80053; 80305; 80320; 81001; 82977; 83690; 83735; 84100; 85025; 85027; 86703; 86705; 86706; 86709; 86803; 86885; 86900; 86901; 86920; 87340; 93005; 96374; 96375; 99152; 99153; 99285; A4620; C9113; G0378; J1940; J2250; J2354; J2405; J2765; J3010; J3480; J7030; J7040; J7050; P9016; P9035; Q0163

== ENCOUNTER 2019-08-06 14:10 | Inpatient (IN) | payer MEDICAID ==
[~2019-08-06] VITALS: Ht 177.8 cm; Wt 49.9 kg
[~2019-08-06 14:10] MED LIST changes: +BUPR-74 PO; +calcium chloride 100 MG/1 ML inj IV ONE; +dextrose 50%-water 50ml dispensing syringe IV ONE; +epiNEPHrine 0.1mg/ml 10ml syringe ONE; +sod chloride 0.9% 10ml flush syringe IV ONE; +sodium bicarbonate (8.4%) 1 mEq/ml syringe ONE
[2019-08-06] MEDS ORDERED: normal saline 1000ML IV soln IVB ONE ×2 (14:15→16:45)
[2019-08-06] MEDS ORDERED: iohexol 300mg/ml 100ml inj. ONE (14:40)
--- NOTE | 2019-08-06 14:40 | NUR ---
Pt transported to CT with nurse and tech, on monitor.
[2019-08-06 14:52] LABS: BASOPHILS # (AUTO) 0.1 X10'3 (0-0.2); EOSINOPHILS # (AUTO) 0.1 X10'3 (0-0.9); MEAN CORPUSCULAR VOLUME 80.2 FL (78-98)
[2019-08-06 14:53] LABS: BASOPHILS % (AUTO) 0.6 % (0-1); EOSINOPHILS % (AUTO) 0.5 % (0-6); HEMATOCRIT 30.7 % (42.0-52.0); HEMOGLOBIN 9.7 g/dl (14.0-17.9); LYMPHOCYTES # (AUTO) 3.2 X10'3 (1.1-4.8); LYMPHOCYTES % (AUTO) 16.3 % (21-51); MEAN CORPUSCULAR HEMOGLOBIN 25.3 PG (27.0-31.0); MEAN CORPUSCULAR HGB CONC 31.5 g/dL (33.0-36.5); MONOCYTES # (AUTO) 1.1 X10'3 (0-0.9); MONOCYTES % (AUTO) 5.5 % (2-12); NEUTROPHILS # (AUTO) 15.1 X10'3 (1.8-7.7); NEUTROPHILS % (AUTO) 77.1 % (42-75); RED BLOOD COUNT 3.83 X10'6 (4.70-6.10); RED CELL DISTRIBUTION WIDTH 21.7 % (11.5-14.5); WHITE BLOOD COUNT 19.7 X10'3 (4.5-11.0)
[2019-08-06] MEDS ORDERED: pantoprazole 40 MG vial IV ONE ×2 (15:10→17:25)
[2019-08-06 15:14] LABS: PLATELET COUNT 49 X10'3 (140-440)
[2019-08-06 15:17] LABS: ALANINE AMINOTRANSFERASE 39 U/L (12-78); ALBUMIN 2.1 G/DL (3.4-5.0); ALBUMIN/GLOBULIN RATIO 0.7 (1.1-1.5); ALKALINE PHOSPHATASE 418 IU/L (46-116); ANION GAP 32 (8-16); BILIRUBIN,TOTAL 3.8 MG/DL (0.1-1.0); BLOOD UREA NITROGEN 59 MG/DL (7-18); BUN/CREATININE RATIO 19.3 (5.4-32.0); CHLORIDE 98 MMOL/L (99-107); CREATININE 3.06 MG/DL (0.60-1.10); ETHANOL < 0.010 GM/DL (0.0-0.010); GLUCOSE 52 MG/DL (70-104); LIPASE 305 U/L (73-393); SODIUM 141 MMOL/L (135-145); TOTAL PROTEIN 5.1 G/DL (6.4-8.2); eGFR 23 ML/MIN
--- NOTE | 2019-08-06 15:20 | NUR ---
Dr Dougherty gave verbal order to not give any blood products at this time.
[2019-08-06 15:26] LABS: ASPARTATE AMINO TRANSFERASE 217 U/L (10-37); CREATINE KINASE 487 U/L (39-308); POTASSIUM 4.7 MMOL/L (3.5-5.1)
--- NOTE | 2019-08-06 15:26 | NUR ---
Truong Gould is pt's POA [phone]. This is the pt's brother, he is also caring for the pt's daughter if the pt asks.
[2019-08-06 15:30] LABS: TOTAL CARBON DIOXIDE 11.3 MMOL/L (24-32); TROPONIN I 0.68 NG/ML (0.0-0.05)
[2019-08-06] MEDS ORDERED: CefTRIAXone 2gm/D5W 50ml 50 ML IV ONE (15:35)
[2019-08-06] MEDS ORDERED: dextrose 50%-water 50ml dispensing syringe IV ONE (15:35)
[2019-08-06 15:40] LABS: NUCLEATED RED BLOOD CELLS 24 /100WBC (0-0); TOTAL CELLS COUNTED 100
[2019-08-06 15:42] LABS: ANISOCYTOSIS 3+; PLATELET ESTIMATE DECREASED; POLYCHROMASIA FEW; SCHISTOCYTES FEW
[2019-08-06 15:43] LABS: BURR CELLS 1+; TOXIC GRANULATION 2+
[2019-08-06 15:56] LABS: ABG BASE EXCESS -16.4 mmol/L (-2.0-2.0); ABG HCO3 10.4 mmol/L (22.0-26.0); ABG OXYGEN SATURATION 20.5 % (94-97); ABG PCO2 (T) 27.6 mmHg (35.0-48.0); ABG PO2 (T) < 28.0 mmHg (75.0-100.0); FCOHb 1.5 % (0.0-3.9); FMetHb 1.6 % (0.0-1.5); FO2Hb 19.9 % (94-97); TOTAL HEMOGLOBIN 7.9 G/dl (14.0-18.0)
[2019-08-06 15:57] LABS: URINE AMPHETAMINE SCREEN POSITIVE (Neg); URINE BARBITUATE SCREEN NEGATIVE (Neg); URINE BENZODIAZEPINES SCREEN POSITIVE (Neg); URINE CANNABINOID SCREEN POSITIVE (Neg); URINE COCAINE SCREEN NEGATIVE (Neg); URINE METHADONE SCREEN NEGATIVE (Neg); URINE OPIATE SCREEN NEGATIVE (Neg); URINE PHENCYCLIDINE SCREEN NEGATIVE (Neg)
[2019-08-06] MEDS ORDERED: pantoprazole 40MG/NS 100ML BAG 100 ML IV SCH (16:00)
[2019-08-06 16:01] LABS: CLARITY,URINE CLOUDY (Clear); COLOR,URINE YELLOW (Yellow); GLUCOSE, URINE NEGATIVE (Neg); KETONES,URINE TRACE mg/dl (Neg); LEUKOCYTE ESTERASE ,URINE NEGATIVE (Neg); NITRITES, URINE NEGATIVE (Neg); OCCULT BLOOD,URINE SMALL (Neg); PH,URINE 5.5 (4.8-8.0); PROTEIN,URINE 30 mg/dl (Neg)
[2019-08-06 16:02] LABS: UA COLLECTION TYPE FOLEY CATH
--- NOTE | 2019-08-06 16:04 | NUR ---
Lab called and states that they are not able to give accurate results for the PTT & PT/INR as the pt is on Brilenta and that is a Vit K inhibitor. Dr Dougherty made aware.
[2019-08-06 16:10] LABS: HYALINE CASTS >30 /LPF (NEGATIVE); SPERM MANY /HPF (NEGATIVE)
[2019-08-06 16:13] LABS: BACTERIA,URINE 2+ /HPF (Neg); RBC,URINE 0-2 /HPF (0-2); SQUAMOUS EPITHELIAL CELL,UR FEW /LPF (FEW)
[2019-08-06 16:20] LABS: ABG BASE EXCESS -17.4 mmol/L (-2.0-2.0); ABG HCO3 7.1 mmol/L (22.0-26.0); ABG OXYGEN SATURATION 90.3 % (94-97); ABG PCO2 (T) 14.6 mmHg (35.0-48.0); ABG PO2 (T) 71.5 mmHg (75.0-100.0); FCOHb 1.6 % (0.0-3.9); FO2Hb 88.9 % (94-97); PATIENT TEMPERATURE 36.4; TOTAL HEMOGLOBIN 9.2 G/dl (14.0-18.0)
[2019-08-06] MEDS ORDERED: normal saline 1000ml 1,000 ML IV SCH (16:34)
[2019-08-06] MEDS ORDERED: potassium Cl 20 mEq SR tablet PO PRN ×2 (16:35)
[2019-08-06] MEDS ORDERED: potassium Cl 20mEq/100mL bag 100 ML IV PRN ×2 (16:35)
[2019-08-06] MEDS ORDERED: morphine 2 MG/ML inj. syringe IV PRN (16:35)
[2019-08-06] MEDS ORDERED: morphine 4 MG/ML inj SYRINge IV PRN (16:35)
[2019-08-06] MEDS ORDERED: potassium CL 10mEq/100ml bag 100 ML IV PRN ×2 (16:35)
[2019-08-06] MEDS ORDERED: ondansetron/PF 4mg/2ml inj IV PRN (16:35)
[2019-08-06] MEDS ORDERED: acetaminophen 325mg tablet PO PRN ×2 (16:35)
[2019-08-06] MEDS ORDERED: LIDOcaine 2% 10ml TOPICAL JELLY (Urojet) TP ONE (16:35)
--- NOTE | 2019-08-06 17:15 | NUR ---
Pt became extremely anxious stating, "I think I am going to , I think I am having a heart attack." EKG obtained and given to Dr Dougherty.
[2019-08-06] MEDS: pantoprazole 40MG/NS 100ML BAG 100 ML IV SCH ×2 (17:33→20:14)
[2019-08-06 18:18] LABS: PLATELET COUNT 33 X10'3 (140-440)
[2019-08-06] MEDS ORDERED: sodium bicarbonate (8.4%) inj. 150 MEQ in dextrose 5%-water 1,000 ML IV SCH (18:45)
[2019-08-06 19:05] LABS: D-DIMER > 35.20 MG/L FEU (0-0.50)
--- NOTE | 2019-08-06 19:05 | NUR ---
code blue called 190. 1904 epi in. 1904 bicarb 1905 check pulse: femoral thready. Dr Dougherty able to palpate carotid pulse. Chest compressions continued 1906-dr phelps here. RT here 1907-tube in 22 at the teeth. 1908-etomidate canceled. 4mg in only prior to canceling. 1908 pulse check-positive pulse at 87. CPR ended 1911- Central line being placed by dr. phelps
--- NOTE | 2019-08-06 19:08 | NUR ---
1907-etomidate administered, Dr. Tirado stopped administration as being pushed in line. Pt only received 4mg.
--- NOTE | 2019-08-06 19:15 | NUR ---
Pt was intubated, central line placed, Dr. Flood stated "i want patient up in ICU right now!" He also gave verbal orders for CVP monotiring, levophed, and versed. Charge nurse placed orders as pt was being rolled up to ICU with primary RN, RT, and Kalin, EMT. PT's BP stable enough to take to ICU as Dr. Flood requested.
--- NOTE | 2019-08-06 19:15 | NUR ---
RECEIVED REPORT FROM RIMAM FRANCIS AND WAS ABLE TO ASK QUESTIONS. JAGDEEP SPRING [facility]S [facility] C[facility]AL LINE. MIKE RUIZ WAS CALLED IN THE ED AT 1903. AWAITING UPDATE ON PT.
[2019-08-06] MEDS ORDERED: NORepinephrine 8mg/ 250ml NS 250 ML IV PRN ×2 (19:25→19:39)
--- NOTE | 2019-08-06 19:40 | NUR ---
Late Entry Note: PENNY Briceño Charge nurse notified of Bed available in ICU at 1900. Pt was sitting up at high fowlers position, awake and alert. He was instructed that he would be going to ICU shortly, report will be called to his nurse. Pt nodded his head yes. Spoke with PENNY Orozco and gave her report about pt's current condition. After giving Pam report, pt was found to be unresponsive with no pulse. Raven wilkerson called.
[2019-08-06] MEDS ORDERED: midazolam 100mg in NS 100ml 100 ML IV PRN (19:44)
[2019-08-06] MEDS ORDERED: FENTANYL-0.9 % NACL/PF 100 ML IV PRN (19:44)
[2019-08-06] MEDS ORDERED: albuterol 2.5 MG/3 ML nebule NEB PRN (19:45)
--- NOTE | 2019-08-06 19:53 | NUR ---
Brother notified of pt's current status. Pt was a code blue and has been intubated and transfered to ICU. He was given the extension for CICU. Brother states he will call for an update in a few hours.
[2019-08-06 20:00] VITALS: BP 172/104
[2019-08-06 20:00] LABS: BASOPHILS # (AUTO) 0.2 X10'3 (0-0.2); BASOPHILS % (AUTO) 1.2 % (0-1); EOSINOPHILS # (AUTO) 0.1 X10'3 (0-0.9); EOSINOPHILS % (AUTO) 0.6 % (0-6); HEMATOCRIT 26.2 % (42.0-52.0); HEMOGLOBIN 7.4 g/dl (14.0-17.9); LYMPHOCYTES # (AUTO) 4.5 X10'3 (1.1-4.8); LYMPHOCYTES % (AUTO) 21.9 % (21-51); MEAN CORPUSCULAR HEMOGLOBIN 25.2 PG (27.0-31.0); MEAN CORPUSCULAR HGB CONC 28.1 g/dL (33.0-36.5); MEAN CORPUSCULAR VOLUME 89.6 FL (78-98); MEAN PLATELET VOLUME 7.8 FL (7.4-10.4); MONOCYTES % (AUTO) 4.9 % (2-12); NEUTROPHILS # (AUTO) 14.6 X10'3 (1.8-7.7); NEUTROPHILS % (AUTO) 71.4 % (42-75); RED BLOOD COUNT 2.92 X10'6 (4.70-6.10); RED CELL DISTRIBUTION WIDTH 21.9 % (11.5-14.5); WHITE BLOOD COUNT 20.4 X10'3 (4.5-11.0)
[2019-08-06] MEDS ORDERED: docusate sod 100mg capsule PO SCH (20:00)
--- NOTE | 2019-08-06 20:01 | NUR ---
PT ARRIVED TO ROOM AT 1940 BEING BAGGED BY RT. PT TRANSFERRED TO CICU BED AND PLACED ON OUR MONITOR, UNABLE TO GET BLOOD PRESSURE ON PT OR SPO2 SAT. STARTING LEVOPHED ORDERED FOR PT. WHILE RT WAS ATTEMPTING TO GET AN ABG THE PT WAS PULSELESS, Addendum: 08/07/19 at 0119 by Pam Lee RN CPR WAS STARTED AND A CODE BLUE WAS CALLED. JAGDEEP SPRING WAS AT THE BEDSIDE. THE PT RECEIVED EPINEPHRINE 1MG, D50 25G, SODIUM BICARB 50MEQ, AND CALCIUM CHLORIDE 1GM BEFORE ACHIEVING ROSC. CVP BEING TRANSDUCED ORDERED. PACKAGING PT TO TAKE TO STAT CT OF ABDOMEN AND PELVIS. STACIA CARTER, JAGDEEP SPRING, AND COOKIE SPRING AT BEDSIDE.
[2019-08-06 20:11] LABS: PLATELET COUNT 38 X10'3 (140-440)
[2019-08-06 20:20] LABS: ALBUMIN 1.6 G/DL (3.4-5.0); ALBUMIN/GLOBULIN RATIO 0.7 (1.1-1.5); ALKALINE PHOSPHATASE 390 IU/L (46-116); ANION GAP 32 (8-16); BILIRUBIN,TOTAL 3.1 MG/DL (0.1-1.0); BLOOD UREA NITROGEN 57 MG/DL (7-18); BUN/CREATININE RATIO 15.7 (5.4-32.0); CALCIUM 7.8 MG/DL (8.5-10.1); CHLORIDE 106 MMOL/L (99-107); CREATININE 3.62 MG/DL (0.60-1.10); SODIUM 144 MMOL/L (135-145); eGFR 19 ML/MIN
[2019-08-06 20:21] LABS: NUCLEATED RED BLOOD CELLS 21 /100WBC (0-0); TOTAL CELLS COUNTED 100
[2019-08-06 20:21] LABS: ABG HCO3 4.2 mmol/L (22.0-26.0); ABG OXYGEN SATURATION 91.4 % (94-97); ABG PCO2 (T) 24.8 mmHg (35.0-48.0); ABG PO2 (T) 101.3 mmHg (75.0-100.0); FCOHb 0.6 % (0.0-3.9); FMetHb 0.8 % (0.0-1.5); FO2Hb 90.1 % (94-97); PATIENT TEMPERATURE 34.8; PEEP 5 cm H2O; RESPIRATORY RATE 20 b/min; TIDAL VOLUME 400 mL; TOTAL HEMOGLOBIN 6.7 G/dl (14.0-18.0)
[2019-08-06 20:22] LABS: ANISOCYTOSIS 3+; PLATELET ESTIMATE DECREASED; POLYCHROMASIA FEW; SCHISTOCYTES FEW
[2019-08-06 20:25] LABS: GLUCOSE 11 MG/DL (70-104)
[2019-08-06 20:26] LABS: POTASSIUM 7.5 MMOL/L (3.5-5.1); TOTAL CARBON DIOXIDE 5.6 MMOL/L (24-32)
[2019-08-06] MEDS ORDERED: albuterol 2.5 MG/3 ML nebule CONTNEB STA (20:27)
[2019-08-06 20:30] VITALS: BP 96/47
[2019-08-06] MEDS ORDERED: midazolam 2 mg/2 ml injection ONE (20:35)
[2019-08-06] MEDS ORDERED: sodium bicarbonate (8.4%) 1 mEq/ml syringe ONE ×2 (20:35→21:46)
[2019-08-06 20:53] LABS: ALANINE AMINOTRANSFERASE 1553 U/L (12-78); ASPARTATE AMINO TRANSFERASE 3319 U/L (10-37)
[2019-08-06 21:00] VITALS: BP 108/66
[2019-08-06] MEDS ORDERED: diatr meglu/diatrizoate 30ml oral sol.-(3 dose) bottle PO SCH (21:00)
--- NOTE | 2019-08-06 21:00 | NUR ---
PT TOLERATED CT WELL, NOW BACK TO ROOM. LEVOPHED, PROTONIX, AND SODIUM BICARB INFUSING THROUGH CENTRAL LINE ORDERED. PT HAS CRITICAL LABS THAT STACIA ACOSTA IS AWARE OF.
[2019-08-06 21:15] VITALS: BP 90/78
[2019-08-06 21:30] VITALS: BP 180/96
[2019-08-06] MEDS ORDERED: vancomycin/NS 1 GM ADD-VANTAGE 250 ML IV ONE (21:30)
--- NOTE | 2019-08-06 21:35 | NUR ---
PLATELETS AND CRYO HAVE INFUSED. STARTING TITRATING LEVOPHED DOWN DUE TO HIGH BLOOD PRESSURE. PT STILL NONRESPONSIVE TO DEEP PAIN, SPO2 WAVEFORM IS VERY POOR, AND PT HAS BRUISING TO ABDOMEN AND BILATERAL FLANKS. PT ALSO HAS MOTTLING PRESENT IN ALL FOUR EXTREMITIES AND BEGINNING TO HAVE MOTTLING ON UPPER CHEST. OG TUBE IS STILL DRAINING RED BLOOD AT A TOTAL OF 50ML AT THIS TIME. STACIA ACOSTA HAS SPOKEN WITH THE PT'S MOTHER TO THE SEVERITY OF HIS ILLNESS AND SHE IS COMING IN TO SEE HIM. WILL CONTINUE TO MONITOR.
[2019-08-06] MEDS ORDERED: epiNEPHrine inj 5 MG in normal saline 250ml IV soln 245 ML IV PRN (21:40)
--- NOTE | 2019-08-06 22:05 | NUR ---
THE PT WENT INTO ASYSTOLE AROUND 2134, CPR WAS STARTED AND A CODE WAS CALLED. NAZIA SPRING RESPONDED ALONG WITH STACIA ACOSTA EPINEPHRIN 1MG, SODIUM BICARB 50MEQ, AND CALCIUM CHLORIDE 1GM WAS GIVEN. THE PT'S MOTHER ARRIVED TO THE BEDSIDE AND WAS ABLE TO WITNESS THE RESUSCITATION ATTEMPTS. THE PT REGAINED ROSC AT 2139 AND THE PT'S MOTHER WAS ABLE TO SIT WITH HIM. THE PT LOST PULSES AT 2141 CPR WAS RESTARTED AND THE PT RECEIVED SODIUM BICARB 50MEQ X2 AND EPINEPHRIN 1MG X5 BEFORE THE RESUSCITATION ATTEMPT WAS TERMINATED BY DR. ANDERS AT 2154 AFTER HE SPOKE WITH THE PT'S MOTHER.
[2019-08-06] MEDS ORDERED: ipratropium/albuterol 3ml nebule NEB SCH (23:00)
[2019-08-07] MEDS ORDERED: piperacillin/tazo 3.375gm/50ml 50 ML IV SCH
[2019-08-07 00:43] LABS: INR > 12.0 INR; PROTHROMBIN TIME > 120.0 SECONDS (9-12)
[2019-08-07] MEDS ORDERED: mineral oil/petrolatum ophthal oint EACHEYE SCH (20:00)
== END 2019-08-06 21:55 | disposition expired | DRG 720 ==
LOC: ER 14:10 → ED HOLD 16:34 → CICU 2S 19:27
PROVIDERS: ADMIT Internal Medicine Critical Care Medicine; ATTEND Internal Medicine Critical Care Medicine
PROC: 30233M1 Transfusion of Nonautologous Plasma Cryoprecipitate into Peripheral Vein, Percutaneous Approach (ICD-10-PCS; principal; 2019-08-06)
PROC: 5A1935Z Respiratory Ventilation, Less than 24 Consecutive Hours (ICD-10-PCS; 2019-08-06)
PROC: 30233R1 Transfusion of Nonautologous Platelets into Peripheral Vein, Percutaneous Approach (ICD-10-PCS; 2019-08-06)
PROC: 0BH17EZ Insertion of Endotracheal Airway into Trachea, Via Natural or Artificial Opening (ICD-10-PCS; 2019-08-06)
DX: A41.9 Sepsis, unspecified organism (principal); I21.4 Non-ST elevation (NSTEMI) myocardial infarction; I46.9 Cardiac arrest, cause unspecified; J91.8 Pleural effusion in other conditions classified elsewhere; J18.9 Pneumonia, unspecified organism; K25.4 Chronic or unspecified gastric ulcer with hemorrhage; K31.1 Adult hypertrophic pyloric stenosis; D69.6 Thrombocytopenia, unspecified; N17.9 Acute kidney failure, unspecified; E87.2 Acidosis; D64.9 Anemia, unspecified; E78.5 Hyperlipidemia, unspecified; F15.10 Other stimulant abuse, uncomplicated; I12.9 Hypertensive chronic kidney disease with stage 1 through stage 4 chronic kidney disease, or unspecified chronic kidney disease; I25.10 Atherosclerotic heart disease of native coronary artery without angina pectoris; J98.11 Atelectasis; K21.0 Gastro-esophageal reflux disease with esophagitis; M47.812 Spondylosis without myelopathy or radiculopathy, cervical region; N18.9 Chronic kidney disease, unspecified; Z87.11 Personal history of peptic ulcer disease; I25.2 Old myocardial infarction; Z87.891 Personal history of nicotine dependence; Z95.5 Presence of coronary angioplasty implant and graft
CPT/HCPCS: 36415; 36430; 36600; 70450; 71045; 71260; 72125; 74176; 74177; 80053; 80305; 80320; 81001; 82550; 82803; 82948; 83605; 83690; 84145; 84484; 85018; 85025; 85379; 85384; 85610; 86885; 86900; 86901; 87040; 87070; 87077; 87088; 87186; 92950; 93005; 93308; 94002; 94640; 94760; 99291; C9113; G0378; J0171; J0696; J2250; J7030; P9012; P9035; Q9963; Q9967